=== PATIENT | male | born 1995 | race Hispanic/Latino ===

== ENCOUNTER 2021-02-19 06:01 | Emergency (ER) | payer SELFPAY ==
[2021-02-19 07:06] LABS: HEMATOCRIT 49.6 % (39.0-50.0); HEMOGLOBIN 16.7 g/dl (14.0-18.0); IMMATURE GRANULOCYTES 0.7 % (0.0-5.0); MEAN CELL VOLUME 88.7 fL CALC (80.0-100.0); MEAN CORPUSCULAR HGB 29.9 pG CALC (26.0-32.0); MEAN CORPUSCULAR HGB CONC 33.7 g/dL CAL (32.0-36.0); NEUT# 5.49 thou/uL (1.82-7.42); RED BLOOD COUNT 5.59 mill/uL (4.70-6.10); RED CELL DISTRI WIDTH 13.4 % (11.5-15.5)
[2021-02-19 07:28] LABS: ALBUMIN 4.5 g/dL (3.2-5.0); ALKALINE PHOSPHATASE 71 u/l (38-126); ANION GAP 12 (6-22 (CALC)); BILIRUBIN, TOTAL 0.7 mg/dL (0.0-1.4); BUN 20 mg/dL (9-20); BUN/CREATININE RATIO 23 (12-20 (CALC)); CARBON DIOXIDE 26 mmol/l (22-30); CHLORIDE 101 mmol/l (95-108); CPK 253 u/l (52-200); CREATININE 0.9 mg/dL (0.7-1.3); ETHYL ALCOHOL 0 mg/dl (0-30); GFR > 60 ML/MIN (>=60 (CALC)); GFR FOR AFR.AMER. > 60 ML/MIN (>=60 (CALC)); MAGNESIUM 2.1 mg/dL (1.6-2.3); POTASSIUM 3.7 mmol/l (3.5-5.1); SGOT/AST 33 u/l (17-59); SODIUM 136 mmol/l (137-146); TOTAL PROTEIN 8.1 g/dL (6.3-8.2)
[2021-02-19 07:40] LABS: MYOGLOBIN 62 ng/mL (0 - 121)
[2021-02-19 07:49] LABS: ACT PARTIAL THROMBO TIME 23.7 SECONDS (20.0-32.5); INTERNATIONAL NORMALIZED RATIO 1.2 RATIO (0.7-1.3); PROTHROMBIN TIME 11.9 SECONDS (9.0-12.5)
[2021-02-19 07:58] LABS: TSH, 3RD GENERATION 1.69 uIU/mL (0.47 - 4.68)
[2021-02-19 08:01] LABS: URINE BILIRUBIN - DIPSTICK NEGATIVE (NEGATIVE); URINE BLOOD DIPSTICK NEGATIVE (NEGATIVE); URINE COLOR YELLOW; URINE GLUCOSE - DIPSTICK NEGATIVE (NEGATIVE); URINE KETONE NEGATIVE (NEGATIVE); URINE LEUK ESTERASE NEGATIVE (NEGATIVE); URINE PROTEIN - DIPSTICK TRACE mg/dL (NEG-TRACE); URINE SPECIFIC GRAVITY 1.025
[2021-02-19 08:03] LABS: URINE NITRITE - DIPSTICK NEGATIVE (Negative)
[2021-02-19] MEDS ORDERED: MECLIZINE 2525 MG PO (13:10)
[2021-02-19 13:25] VITALS: BP 120/65
== END 2021-02-19 13:26 | disposition home or self-care (01) | DRG 149 ==
LOC: ED 06:01
PROVIDERS: Family Medicine
DX: R42 Dizziness and giddiness (principal)
CPT/HCPCS: J2060